=== PATIENT | male | born 1960 | race Caucasian/White ===

== ENCOUNTER 2020-10-18 13:21 | Emergency (ER) | payer MEDICAID ==
[~2020-10-18] VITALS: Ht 149.9 cm; Wt 40.5 kg
[~2020-10-18 13:21] MED LIST: ASCO500T28 PO; BENZ0.5T27 PO; CRAN450T4 PO; FLUV100T3 PO; LACTC PO; POLY17PO10 PO; RISP1TAB13 PO; SENN-263 PO; SULF1TAB45 PO
[2020-10-18 14:24] VITALS: BP 133/77
[2020-10-18 14:34] LABS: BASOPHILS % (AUTO) 0.6 % (0-1); EOSINOPHILS # (AUTO) 0.3 X10'3 (0-0.9); EOSINOPHILS % (AUTO) 4.9 % (0-6); HEMOGLOBIN 14.3 g/dl (14.0-17.9); LYMPHOCYTES # (AUTO) 2.3 X10'3 (1.1-4.8); LYMPHOCYTES % (AUTO) 34.1 % (21-51); MEAN CORPUSCULAR HGB CONC 34.9 g/dL (33.0-36.5); MEAN PLATELET VOLUME 6.8 FL (7.4-10.4); MONOCYTES % (AUTO) 14.4 % (2-12); NEUTROPHILS # (AUTO) 3.2 X10'3 (1.8-7.7); PLATELET COUNT 173 X10'3 (140-440); RED CELL DISTRIBUTION WIDTH 12.7 % (11.5-14.5); WHITE BLOOD COUNT 6.9 X10'3 (4.5-11.0)
[2020-10-18 14:52] LABS: ALANINE AMINOTRANSFERASE 63 U/L (12-78); ALBUMIN 3.1 G/DL (3.4-5.0); ALBUMIN/GLOBULIN RATIO 0.8 (1.1-1.5); ALKALINE PHOSPHATASE 116 IU/L (46-116); ANION GAP 9 (8-16); ASPARTATE AMINO TRANSFERASE 37 U/L (10-37); BILIRUBIN,TOTAL 0.2 MG/DL (0.1-1.0); BLOOD UREA NITROGEN 20 MG/DL (7-18); BUN/CREATININE RATIO 21.5 (5.4-32.0); C-REACTIVE PROTEIN 0.54 MG/DL (0.0-0.5); CALCIUM 8.6 MG/DL (8.5-10.1); CHLORIDE 103 MMOL/L (99-107); CREATININE 0.93 MG/DL (0.60-1.10); GLUCOSE 117 MG/DL (70-104); POTASSIUM 3.8 MMOL/L (3.5-5.1); SODIUM 142 MMOL/L (135-145); TOTAL CARBON DIOXIDE 30.5 MMOL/L (24-32); TOTAL PROTEIN 6.9 G/DL (6.4-8.2); eGFR 82 ML/MIN
[2020-10-18] MEDS ORDERED: iohexol 350MG/ML 100ml bottle IV ONE (15:32)
[2020-10-18] MEDS ORDERED: KEF125L PO (19:54)
[2020-10-18] MEDS ORDERED: cephalexin 250mg capsule PO ONE (20:05)
== END 2020-10-18 20:59 | disposition home or self-care (01) ==
LOC: EDBD → MERGE 13:21 → ER 13:21 → EDBD 13:21 → ER 20:59
DX: I96 Gangrene, not elsewhere classified (principal); R62.50 Unspecified lack of expected normal physiological development in childhood; B18.1 Chronic viral hepatitis B without delta-agent; Z88.0 Allergy status to penicillin; Z79.2 Long term (current) use of antibiotics; Z79.899 Other long term (current) drug therapy; Z86.19 Personal history of other infectious and parasitic diseases; Z87.440 Personal history of urinary (tract) infections
CPT/HCPCS: 29130; 36415; 73130; 73140; 73206; 80053; 83605; 84145; 85025; 85651; 86140; 87040; 99285; Q9967

== ENCOUNTER 2020-10-20 23:00 | Emergency (ER) | payer MEDICAID ==
[~2020-10-20] VITALS: Ht 137.2 cm; Wt 48.0 kg
[~2020-10-20 23:00] MED LIST changes: +KEF125L PO
[2020-10-20 23:05] VITALS: BP 121/77
[2020-10-20] MEDS ORDERED: normal saline 1000ML IV soln IV ONE (23:10)
[2020-10-21 00:07] LABS: BASOPHILS % (AUTO) 0.1 % (0-1); EOSINOPHILS # (AUTO) 0.1 X10'3 (0-0.9); EOSINOPHILS % (AUTO) 0.9 % (0-6); HEMATOCRIT 39.3 % (42.0-52.0); HEMOGLOBIN 13.6 g/dl (14.0-17.9); LYMPHOCYTES # (AUTO) 0.5 X10'3 (1.1-4.8); LYMPHOCYTES % (AUTO) 5.8 % (21-51); MEAN CORPUSCULAR HEMOGLOBIN 31.1 PG (27.0-31.0); MEAN CORPUSCULAR HGB CONC 34.7 g/dL (33.0-36.5); MEAN CORPUSCULAR VOLUME 89.6 FL (78-98); MEAN PLATELET VOLUME 6.8 FL (7.4-10.4); MONOCYTES # (AUTO) 0.5 X10'3 (0-0.9); MONOCYTES % (AUTO) 5.6 % (2-12); NEUTROPHILS % (AUTO) 87.6 % (42-75); PLATELET COUNT 149 X10'3 (140-440); RED BLOOD COUNT 4.39 X10'6 (4.70-6.10); RED CELL DISTRIBUTION WIDTH 12.8 % (11.5-14.5); WHITE BLOOD COUNT 9.2 X10'3 (4.5-11.0)
[2020-10-21 00:37] LABS: ALANINE AMINOTRANSFERASE 57 U/L (12-78); ALBUMIN 2.7 G/DL (3.4-5.0); ALBUMIN/GLOBULIN RATIO 0.7 (1.1-1.5); ALKALINE PHOSPHATASE 94 IU/L (46-116); ASPARTATE AMINO TRANSFERASE 32 U/L (10-37); BILIRUBIN,TOTAL 0.4 MG/DL (0.1-1.0); BLOOD UREA NITROGEN 24 MG/DL (7-18); BUN/CREATININE RATIO 27.9 (5.4-32.0); CALCIUM 8.2 MG/DL (8.5-10.1); CREATININE 0.86 MG/DL (0.60-1.10); GLUCOSE 105 MG/DL (70-104); MAGNESIUM 1.9 MG/DL (1.5-2.4); TOTAL CARBON DIOXIDE 29.1 MMOL/L (24-32); TOTAL PROTEIN 6.4 G/DL (6.4-8.2); eGFR 90 ML/MIN
[2020-10-21 00:43] LABS: ANION GAP 9 (8-16); CHLORIDE 109 MMOL/L (99-107); POTASSIUM 3.5 MMOL/L (3.5-5.1); SODIUM 147 MMOL/L (135-145)
[2020-10-21] MEDS ORDERED: SULF1TAB49 PO (01:23)
[2020-10-21] MEDS ORDERED: acetaminophen 325mg tablet PO ONE (01:35)
== END 2020-10-21 02:01 | disposition home or self-care (01) ==
LOC: ER 23:01
DX: I96 Gangrene, not elsewhere classified (principal); R62.50 Unspecified lack of expected normal physiological development in childhood; R53.83 Other fatigue; Z86.19 Personal history of other infectious and parasitic diseases; Z88.0 Allergy status to penicillin
CPT/HCPCS: 36415; 71045; 80053; 83605; 83735; 84145; 85025; 87040; 93005; 96360; 96361; 99285; J7030

== ENCOUNTER 2020-10-27 08:04 | Emergency (ER) | payer MEDICAID ==
[~2020-10-27] VITALS: Ht 144.8 cm; Wt 42.9 kg
[~2020-10-27 08:04] MED LIST changes: -KEF125L PO; +SULF1TAB49 PO
[2020-10-27] MEDS ORDERED: cocaine 4% topical solution 4ml bottle MM ONE (08:15)
--- NOTE | 2020-10-27 08:29 | NUR ---
CALLED PHARMACY FOR PHENYEPRINE NASAL SPRAY PER PHARMACY THEY WILL BRING IN FEW MINS.
[2020-10-27] MEDS ORDERED: phenylephrine 0.5% nose drops 15ml NS PRN (08:40)
--- NOTE | 2020-10-27 09:08 | NUR ---
MEDS ADMIN BY THE DR SAVAGE.
[2020-10-27 09:25] VITALS: BP 137/77
--- NOTE | 2020-10-27 09:32 | NUR ---
notified the primary care coordinator the pt is getting d/c.
== END 2020-10-27 10:00 | disposition home or self-care (01) ==
LOC: ER 08:05
DX: R04.0 Epistaxis (principal); I96 Gangrene, not elsewhere classified; F20.9 Schizophrenia, unspecified; Z86.19 Personal history of other infectious and parasitic diseases; Z88.0 Allergy status to penicillin; Z79.2 Long term (current) use of antibiotics; Z79.899 Other long term (current) drug therapy
CPT/HCPCS: 99284

== ENCOUNTER 2020-10-30 13:10 | Emergency (ER) | payer MEDICAID ==
[~2020-10-30] VITALS: Ht 165.1 cm; Wt 43.2 kg
[~2020-10-30 13:10] MED LIST changes: -SULF1TAB49 PO
[2020-10-30 13:14] VITALS: BP 109/79
== END 2020-10-30 18:15 | disposition home or self-care (01) ==
LOC: ER 13:11
DX: S00.83XD Contusion of other part of head, subsequent encounter (principal); F20.9 Schizophrenia, unspecified; Z86.19 Personal history of other infectious and parasitic diseases; Z88.0 Allergy status to penicillin; Z79.2 Long term (current) use of antibiotics; Z79.899 Other long term (current) drug therapy; W19.XXXD Unspecified fall, subsequent encounter
CPT/HCPCS: 70150; 99283

== ENCOUNTER 2020-12-21 07:56 | Day surgery (SDC) | payer MEDICAID ==
[~2020-12-21] VITALS: Ht 157.5 cm; Wt 40.4 kg
[2020-12-21] VITALS (12 sets, daily range): BP systolic 77–117; BP diastolic 43–75
[~2020-12-21 07:56] MED LIST changes: +BUPIVAcaine/PF 2.5mg/ml (0.25%) 10ml vial ONE; +clindamycin-Cleocin 900mg/D5W 50 ML IV ONE; +famotidine 20mg tablet PO ONE; +ringers solution, lacted 1,000 ML IV SCH
[2020-12-21] MEDS ORDERED: MIDAZOLAM HCL 10 MG/5 ML UD cup PO ONE (08:50)
[2020-12-21] MEDS ORDERED: sevoflurane 250ml liquid IH ONE (10:18)
[2020-12-21] MEDS ORDERED: propofol inj 20 ML IV ONE (10:20)
[2020-12-21] MEDS ORDERED: ePHEDrine 50MG/ML INJ. ONE (10:34)
--- NOTE | 2020-12-21 11:14 | NUR ---
ASSUME CARE VSS NO DISTRESS LMA IN PLACE RESPONDS TO TACTILE STIMULI. DRESSING TO LEFT HAND CDI +CMS TO LEFT HAND AND FINGERS. CONT TO MONITOR Addendum: 12/21/20 at 1129 by Christiana Andre RN Amended: Links added.
[2020-12-21] MEDS ORDERED: meperidine/PF 25mg/ml syringe IV PRN ×3 (11:20)
[2020-12-21] MEDS ORDERED: ringers solution, lacted 1,000 ML IV SCH (11:20)
[2020-12-21] MEDS ORDERED: proCHLORperazine 10 MG/2 ml inj IV PRN (11:20)
[2020-12-21] MEDS ORDERED: ondansetron/PF 4mg/2ml inj IV PRN (11:20)
[2020-12-21] MEDS ORDERED: morphine 2 MG/ML inj. syringe IV PRN (11:20)
[2020-12-21] MEDS ORDERED: morphine 4 MG/ML inj SYRINge IV PRN (11:20)
--- NOTE | 2020-12-21 11:38 | NUR ---
PT MORE AWAKE LMA PULLED TO OTHER DISTRESS VSS Addendum: 12/21/20 at 1138 by Christiana Andre RN Amended: Links added.
--- NOTE | 2020-12-21 13:00 | NUR ---
PT MORE AWAKE VSS NO DISTRESS NO PAIN, DC INSTR GIVEN TO CAREGIVER NO ?'S PT MEETS CRITERIA TO GO HOME. RIDE CALLED. Addendum: 12/21/20 at 1338 by Christiana Andre RN Amended: Links added.
== END 2020-12-21 13:14 | disposition home or self-care (01) ==
LOC: PAS 07:56
PROVIDERS: ATTEND Orthopaedic Surgery Hand Surgery
DX: I96 Gangrene, not elsewhere classified (principal); F42.9 Obsessive-compulsive disorder, unspecified; F20.9 Schizophrenia, unspecified; B18.1 Chronic viral hepatitis B without delta-agent; Z88.0 Allergy status to penicillin; Z79.899 Other long term (current) drug therapy
CPT/HCPCS: 26951; A6222; J2704; J3490; J7120; Z7506; Z7512; A4618; A6449; A7000

== ENCOUNTER 2020-12-31 09:33 | Emergency (ER) | payer MEDICAID ==
[~2020-12-31] VITALS: Ht 144.8 cm; Wt 45.0 kg
[~2020-12-31 09:33] MED LIST changes: -BUPIVAcaine/PF 2.5mg/ml (0.25%) 10ml vial ONE; -clindamycin-Cleocin 900mg/D5W 50 ML IV ONE; -famotidine 20mg tablet PO ONE; -ringers solution, lacted 1,000 ML IV SCH
== END 2020-12-31 16:59 | disposition left against medical advice (07) ==
LOC: ER 09:34
DX: H57.12 Ocular pain, left eye (principal); Z53.21 Procedure and treatment not carried out due to patient leaving prior to being seen by health care provider

== ENCOUNTER 2021-02-07 18:53 | Emergency (ER) | payer MEDICAID ==
[~2021-02-07] VITALS: Ht 144.8 cm; Wt 38.6 kg
[~2021-02-07 18:53] MED LIST changes: -BENZ0.5T27 PO; +BENZ0.5T36 PO; +FLUV100T21 PO; -FLUV100T3 PO
[2021-02-07 19:04] VITALS: BP 150/78
[2021-02-07 19:47] LABS: BASOPHILS % (AUTO) 0.2 % (0-1); EOSINOPHILS % (AUTO) 0.1 % (0-6); HEMATOCRIT 37.2 % (42.0-52.0); HEMOGLOBIN 13.1 g/dl (14.0-17.9); LYMPHOCYTES # (AUTO) 1.5 X10'3 (1.1-4.8); LYMPHOCYTES % (AUTO) 20.9 % (21-51); MEAN CORPUSCULAR HEMOGLOBIN 31.8 PG (27.0-31.0); MEAN CORPUSCULAR HGB CONC 35.2 g/dL (33.0-36.5); MEAN CORPUSCULAR VOLUME 90.2 FL (78-98); MEAN PLATELET VOLUME 6.7 FL (7.4-10.4); MONOCYTES # (AUTO) 0.8 X10'3 (0-0.9); MONOCYTES % (AUTO) 10.8 % (2-12); NEUTROPHILS # (AUTO) 4.8 X10'3 (1.8-7.7); PLATELET COUNT 205 X10'3 (140-440); RED BLOOD COUNT 4.13 X10'6 (4.70-6.10); RED CELL DISTRIBUTION WIDTH 12.4 % (11.5-14.5); WHITE BLOOD COUNT 7.1 X10'3 (4.5-11.0)
[2021-02-07 20:05] LABS: ALANINE AMINOTRANSFERASE 51 U/L (12-78); ALBUMIN 2.7 G/DL (3.4-5.0); ALBUMIN/GLOBULIN RATIO 0.6 (1.1-1.5); ALKALINE PHOSPHATASE 100 IU/L (46-116); ANION GAP 6 (8-16); ASPARTATE AMINO TRANSFERASE 25 U/L (10-37); BILIRUBIN,TOTAL 0.2 MG/DL (0.1-1.0); BLOOD UREA NITROGEN 23 MG/DL (7-18); BUN/CREATININE RATIO 23.7 (5.4-32.0); CALCIUM 8.8 MG/DL (8.5-10.1); CHLORIDE 108 MMOL/L (99-107); CREATININE 0.97 MG/DL (0.60-1.10); GLUCOSE 221 MG/DL (70-104); POTASSIUM 4.1 MMOL/L (3.5-5.1); SODIUM 146 MMOL/L (135-145); TOTAL CARBON DIOXIDE 31.8 MMOL/L (24-32); TOTAL PROTEIN 7.2 G/DL (6.4-8.2); eGFR 78 ML/MIN
[2021-02-07] MEDS ORDERED: ALBU8HFA PO (20:09)
[2021-02-07] MEDS ORDERED: AZIT-103 PO (20:09)
[2021-02-07] MEDS ORDERED: azithromycin 250mg tablet PO ONE (20:20)
== END 2021-02-07 20:34 | disposition home or self-care (01) ==
LOC: ER 18:54
DX: J20.9 Acute bronchitis, unspecified (principal); F20.9 Schizophrenia, unspecified; Z88.0 Allergy status to penicillin; Z79.899 Other long term (current) drug therapy; Z20.822 Contact with and (suspected) exposure to COVID-19
CPT/HCPCS: 36415; 71045; 80053; 85025; 87635; 99284; C9803

== ENCOUNTER 2021-07-21 20:05 | Emergency (ER) | payer MEDICAID ==
[~2021-07-21] VITALS: Ht 144.8 cm; Wt 38.6 kg
[2021-07-21] MEDS ORDERED: LORazepam 2 mg/ml vial IM ONE (20:35)
[2021-07-21] MEDS ORDERED: bacitracin 15gm ointment TP ONE (20:35)
== END 2021-07-21 21:25 | disposition home or self-care (01) ==
LOC: ER 20:06
DX: S01.312A Laceration without foreign body of left ear, initial encounter (principal); R62.50 Unspecified lack of expected normal physiological development in childhood; S01.01XA Laceration without foreign body of scalp, initial encounter; Z86.19 Personal history of other infectious and parasitic diseases; Z88.0 Allergy status to penicillin; Z79.899 Other long term (current) drug therapy; W19.XXXA Unspecified fall, initial encounter; Z91.81 History of falling; Y93.89 Activity, other specified; Y92.89 Other specified places as the place of occurrence of the external cause; Y99.8 Other external cause status
CPT/HCPCS: 96372; 99284; J2060

== ENCOUNTER 2021-09-21 12:07 | Inpatient (IN) | payer MEDICAID ==
[~2021-09-21] VITALS: Ht 152.4 cm; Wt 31.8 kg
[2021-09-21 16:47] LABS: BASOPHILS % (AUTO) 0.3 % (0-1); EOSINOPHILS # (AUTO) 0.1 X10'3 (0-0.9); HEMATOCRIT 47.3 % (42.0-52.0); HEMOGLOBIN 15.6 g/dl (14.0-17.9); LYMPHOCYTES # (AUTO) 3.6 X10'3 (1.1-4.8); LYMPHOCYTES % (AUTO) 36.3 % (21-51); MEAN CORPUSCULAR HEMOGLOBIN 31.1 PG (27.0-31.0); MEAN CORPUSCULAR VOLUME 94.2 FL (78-98); MEAN PLATELET VOLUME 8.1 FL (7.4-10.4); MONOCYTES # (AUTO) 0.9 X10'3 (0-0.9); NEUTROPHILS # (AUTO) 5.2 X10'3 (1.8-7.7); NEUTROPHILS % (AUTO) 53.4 % (42-75); PLATELET COUNT 239 X10'3 (140-440); RED BLOOD COUNT 5.03 X10'6 (4.70-6.10); RED CELL DISTRIBUTION WIDTH 13.3 % (11.5-14.5); WHITE BLOOD COUNT 9.8 X10'3 (4.5-11.0)
[2021-09-21 17:02] LABS: ALANINE AMINOTRANSFERASE 49 U/L (12-78); ALBUMIN/GLOBULIN RATIO 0.6 (1.1-1.5); ALKALINE PHOSPHATASE 99 IU/L (46-116); ANION GAP 15 (8-16); ASPARTATE AMINO TRANSFERASE 27 U/L (10-37); BILIRUBIN,TOTAL 0.6 MG/DL (0.1-1.0); BLOOD UREA NITROGEN 51 MG/DL (7-18); BUN/CREATININE RATIO 46.4 (5.4-32.0); CALCIUM 9.7 MG/DL (8.5-10.1); CHLORIDE 121 MMOL/L (99-107); GLUCOSE 75 MG/DL (70-104); LIPASE 93 U/L (73-393); eGFR 68 ML/MIN
[2021-09-21 17:09] LABS: SODIUM 169 MMOL/L (135-145)
[2021-09-21] MEDS ORDERED: sodium chloride 0.45% 1,000 ML IV ONE (21:05)
[2021-09-21] MEDS ORDERED: HYDROcodone/acetaminophen 10/325mg tab PO PRN (22:25)
[2021-09-21] MEDS ORDERED: diphenhydrAMINE 50 mg/ml inj IV PRN (22:25)
[2021-09-21] MEDS ORDERED: acetaminophen 650mg rectal suppository RC PRN (22:25)
[2021-09-21] MEDS ORDERED: diphenhydrAMINE 25mg capsule PO PRN (22:25)
[2021-09-21] MEDS ORDERED: acetaminophen 325mg tablet PO PRN ×2 (22:25)
[2021-09-21] MEDS ORDERED: ondansetron 4mg rapidly disintigrating tab PO PRN (22:25)
[2021-09-21] MEDS ORDERED: magnesium hydroxide 30ml (MOM) UD suspension PO PRN (22:25)
[2021-09-21] MEDS ORDERED: mag hydrox/Alum hydrox/simeth 30ml oral suspension PO PRN (22:25)
[2021-09-21] MEDS ORDERED: HYDROcodone/acetaminophen 5mg/325mg tablet PO PRN (22:25)
[2021-09-21] MEDS ORDERED: ondansetron/PF 4mg/2ml inj IV PRN (22:25)
[2021-09-21] MEDS ORDERED: bisacodyl 10mg suppository rectal RC PRN (22:25)
[2021-09-21] MEDS ORDERED: morphine 2 MG/ML inj. syringe IV PRN ×2 (22:25)
[2021-09-21] MEDS ORDERED: diazepam inj 5 MG/ML inj. IV PRN (22:35)
[2021-09-21] MEDS: dextrose 5%-water 1,000 ML IV SCH (22:35)
[2021-09-21] MEDS ORDERED: niCARdipine I.V. 50 MG in normal saline 250ml IV soln 230 ML IV SCH (22:35)
[2021-09-21 22:49] LABS: HEMOGLOBIN A1C 5.8 % (4.5-6.2)
[2021-09-21 23:03] LABS: PHOSPHORUS 4.3 MG/DL (2.3-4.5)
[2021-09-21 23:11] LABS: APTT 28 SECONDS (22-32)
[2021-09-21 23:24] LABS: CREATINE KINASE 113 U/L (39-308)
[2021-09-21] MEDS: niCARDipine-NS 40mg/200ml IVPB 200 ML IV SCH (23:38)
[2021-09-22 01:04] LABS: BASOPHILS % (AUTO) 0.2 % (0-1); EOSINOPHILS % (AUTO) 0 % (0-6); HEMATOCRIT 45.1 % (42.0-52.0); HEMOGLOBIN 14.9 g/dl (14.0-17.9); LYMPHOCYTES # (AUTO) 1.7 X10'3 (1.1-4.8); LYMPHOCYTES % (AUTO) 12.5 % (21-51); MEAN CORPUSCULAR HEMOGLOBIN 30.7 PG (27.0-31.0); MEAN CORPUSCULAR HGB CONC 33.1 g/dL (33.0-36.5); MEAN CORPUSCULAR VOLUME 92.9 FL (78-98); MEAN PLATELET VOLUME 8.1 FL (7.4-10.4); NEUTROPHILS # (AUTO) 10.9 X10'3 (1.8-7.7); NEUTROPHILS % (AUTO) 80.3 % (42-75); PLATELET COUNT 182 X10'3 (140-440); RED BLOOD COUNT 4.86 X10'6 (4.70-6.10); RED CELL DISTRIBUTION WIDTH 13.3 % (11.5-14.5); WHITE BLOOD COUNT 13.6 X10'3 (4.5-11.0)
[2021-09-22 01:21] LABS: ALANINE AMINOTRANSFERASE 41 U/L (12-78); ALBUMIN 2.7 G/DL (3.4-5.0); ALBUMIN/GLOBULIN RATIO 0.6 (1.1-1.5); ALKALINE PHOSPHATASE 88 IU/L (46-116); ANION GAP 16 (8-16); ASPARTATE AMINO TRANSFERASE 22 U/L (10-37); BILIRUBIN,TOTAL 0.7 MG/DL (0.1-1.0); BLOOD UREA NITROGEN 58 MG/DL (7-18); BUN/CREATININE RATIO 48.3 (5.4-32.0); CALCIUM 9.4 MG/DL (8.5-10.1); CHLORIDE 123 MMOL/L (99-107); CHOL/HDL RATIO 3.3 (0.00-4.99); CHOLESTEROL 258 MG/DL (0-200); GLUCOSE 80 MG/DL (70-104); HDL CHOLESTEROL 78 MG/DL (35-60); LDL CHOLESTEROL 142 MG/DL (50-100); POTASSIUM 4.1 MMOL/L (3.5-5.1); TOTAL PROTEIN 7.1 G/DL (6.4-8.2); TRIGLYCERIDES 113 MG/DL (20-135); eGFR 61 ML/MIN
[2021-09-22 01:23] LABS: SODIUM 168 MMOL/L (135-145)
[2021-09-22] MEDS ORDERED: NAPR-1115 PO (04:47)
[2021-09-22] MEDS ORDERED: FLUV100C2 PO (04:47)
[2021-09-22] MEDS ORDERED: LORA10TA7 PO (04:47)
[2021-09-22] MEDS ORDERED: RISP1TAB98 PO (04:47)
[2021-09-22] MEDS ORDERED: SENN-263 PO (04:47)
[2021-09-22] MEDS ORDERED: ACET-1015 PO (04:47)
[2021-09-22] MEDS ORDERED: LATA2.5D14 LEFTEYE (04:47)
[2021-09-22] MEDS ORDERED: BENZ0.5T4 PO (04:47)
[2021-09-22] MEDS ORDERED: FLUV50TA24 PO (04:47)
[2021-09-22] MEDS ORDERED: ALBU8HFA IH (04:53)
[2021-09-22] MEDS: niCARDipine-NS 40mg/200ml IVPB 200 ML IV SCH ×3 (05:15→22:02)
[2021-09-22] MEDS ORDERED: pantoprazole 40MG/NS 100ML BAG 100 ML IV SCH (08:00)
[2021-09-22] MEDS: docusate sod 100mg capsule PO SCH ×2 (08:00→20:00)
[2021-09-22] MEDS: levoFLOXACIN 750MG TABLET PO SCH (08:51)
[2021-09-22] MEDS: heparin, porcine 5000 units/ml vial SQ SCH ×2 (08:51→22:01)
[2021-09-22] MEDS: dextrose 5%-water 1,000 ML IV SCH ×2 (10:10→16:17)
--- NOTE | 2021-09-22 10:16 | NUR ---
Call to CT scan to inform them patient ready for CT scan.
--- NOTE | 2021-09-22 12:28 | NUR ---
pt monitoring engineer was showing hr of 200's while pt was anxious and taping his chest with his hands.order the stat ekg for monitor changes .
--- NOTE | 2021-09-22 12:32 | NUR ---
dr jordan seen the ekg and said its okay .
--- NOTE | 2021-09-22 12:45 | NUR ---
delfino cruz feeding lunch to the patient .
--- NOTE | 2021-09-22 13:09 | NUR ---
Patient ate 80% of his puree lunch and drank half of his ice tea.
[2021-09-22 15:59] VITALS: BP 82/56
[2021-09-22] MEDS ORDERED: albuterol 2.5 MG/3 ML nebule NEB PRN (17:15)
--- NOTE | 2021-09-22 17:39 | NUR ---
PAGE SENT PAGER ID: [phone] MESSAGE: [id number], JOSÉ MANUEL SIBLEY, PT COULD BENEFIT FROM A SITTER PT TRIES TO GET OUT OF BED AND HE HAS ALSO BEEN FOUND WITH IV LINES AROUND HIS NECK. THANK YOU, CIRO [id number]
[2021-09-22 18:00] VITALS: BP 86/58
--- NOTE | 2021-09-22 18:39 | NUR ---
Problems reprioritized. Patient report given, questions answered & plan of care reviewed with ABHILASH ASH.
--- NOTE | 2021-09-22 18:40 | NUR ---
Patient in room PCU 3028. I have received report from CIRO HUNG and had the opportunity to ask questions and assume patient care.
[2021-09-22] MEDS: FLUVOXAMINE MALEATE 100 MG PO SCH (21:00)
[2021-09-22 22:00] VITALS: BP 98/55
[2021-09-22] MEDS: risperiDONE 0.5mg tablet PO SCH (22:00)
[2021-09-22] MEDS: latanoprost 0.005% 2.5ml ophthalmic drops LEFTEYE SCH (22:00)
[2021-09-23 02:00] VITALS: BP 114/72
[2021-09-23] MEDS: dextrose 5%-water 1,000 ML IV SCH ×2 (04:52→17:11)
[2021-09-23 05:49] LABS: BASOPHILS % (AUTO) 0.2 % (0-1); EOSINOPHILS # (AUTO) 0.1 X10'3 (0-0.9); EOSINOPHILS % (AUTO) 0.8 % (0-6); HEMATOCRIT 40.2 % (42.0-52.0); HEMOGLOBIN 13.2 g/dl (14.0-17.9); LYMPHOCYTES # (AUTO) 1.1 X10'3 (1.1-4.8); MEAN CORPUSCULAR HEMOGLOBIN 30.6 PG (27.0-31.0); MEAN CORPUSCULAR HGB CONC 32.9 g/dL (33.0-36.5); MEAN CORPUSCULAR VOLUME 92.9 FL (78-98); MEAN PLATELET VOLUME 8.5 FL (7.4-10.4); MONOCYTES # (AUTO) 0.6 X10'3 (0-0.9); MONOCYTES % (AUTO) 7.8 % (2-12); NEUTROPHILS # (AUTO) 5.7 X10'3 (1.8-7.7); NEUTROPHILS % (AUTO) 76.2 % (42-75); PLATELET COUNT 121 X10'3 (140-440); RED BLOOD COUNT 4.33 X10'6 (4.70-6.10); RED CELL DISTRIBUTION WIDTH 13.1 % (11.5-14.5); WHITE BLOOD COUNT 7.4 X10'3 (4.5-11.0)
[2021-09-23 06:00] VITALS: BP 105/59
[2021-09-23 06:06] LABS: ALANINE AMINOTRANSFERASE 27 U/L (12-78); ALBUMIN 2.2 G/DL (3.4-5.0); ALBUMIN/GLOBULIN RATIO 0.6 (1.1-1.5); ALKALINE PHOSPHATASE 76 IU/L (46-116); ANION GAP 7 (8-16); ASPARTATE AMINO TRANSFERASE 23 U/L (10-37); BILIRUBIN,TOTAL 0.6 MG/DL (0.1-1.0); BLOOD UREA NITROGEN 32 MG/DL (7-18); BUN/CREATININE RATIO 31.7 (5.4-32.0); CALCIUM 8.5 MG/DL (8.5-10.1); CHLORIDE 117 MMOL/L (99-107); CREATININE 1.01 MG/DL (0.60-1.10); GLUCOSE 127 MG/DL (70-104); POTASSIUM 3.1 MMOL/L (3.5-5.1); TOTAL CARBON DIOXIDE 30.9 MMOL/L (24-32); TOTAL PROTEIN 6.1 G/DL (6.4-8.2); eGFR 75 ML/MIN
[2021-09-23 06:23] LABS: SODIUM 155 MMOL/L (135-145)
--- NOTE | 2021-09-23 06:28 | NUR ---
Problems reprioritized. Patient report given, questions answered & plan of care reviewed with JAIMIE HUNG.
--- NOTE | 2021-09-23 06:30 | NUR ---
Received pt report from Tanisha HUNG. Pt resting comfortably with sitter at bedside.
[2021-09-23] MEDS: docusate sod 100mg capsule PO SCH ×2 (08:00→20:27)
[2021-09-23] MEDS: heparin, porcine 5000 units/ml vial SQ SCH ×2 (08:40→20:27)
[2021-09-23] MEDS: loratadine 10mg tablet PO SCH (08:40)
[2021-09-23] MEDS: fluvoxamine 25 MG tablet PO SCH ×2 (08:40→20:26)
[2021-09-23] MEDS: lactobacillus rhamnosus 10,000 MMU CELLS/CAPSULE PO SCH (08:40)
[2021-09-23] MEDS: benztropine 1mg tablet PO SCH (08:40)
[2021-09-23] MEDS: pantoprazole 40mg Tablet.DR PO SCH (08:42)
[2021-09-23] MEDS ORDERED: magnesium 4gm in 100ml NS 100 ML IV PRN (09:30)
[2021-09-23] MEDS ORDERED: magnesium Cl slow-release 64mg tablet PO PRN (09:30)
[2021-09-23] MEDS ORDERED: magnesium 2GM in 50ml NS 50 ML IV PRN (09:30)
[2021-09-23] MEDS ORDERED: POTASSIUM BICARB 20meq eff tab 20 MEQ TABLET.EFF PO PRN ×2 (09:30)
--- NOTE | 2021-09-23 10:10 | NUR ---
Noted pt with a low BMI of 13.7 using wt of 31.82 kg which isn't scaled and ht of 60" which is not consistent with ht hx in EMR. Pt most frequently documented as 57" at past admits and scaled wt hx ranges from 37.27-45 kg back to 2020. Pt appears to be chronically underweight. Pt s/p BSS with ST recs pureed food with thin liquids, currently eating well, documented with 75% PO intake first meal meeting estimated nutrient needs. Pt with hypernatremia, receiving D5 at 100 mL/hr which provides 408 kcal/day. Pt with no edema and skin is intact per EMR. No nutrition intervention implemented at this time. Will continue to follow closely. Recommendations: 1) Continue pureed diet with thin liquids per ST recs 2) Total assistance with meals 3) Routine bowel care 4) Scaled weight this admit; subsequent weekly scaled weights Addendum: 09/23/21 at [address] Amended: Links added.
[2021-09-23 10:14] LABS: MAGNESIUM 2.1 MG/DL (1.5-2.4)
[2021-09-23 11:00] VITALS: BP 88/51
--- NOTE | 2021-09-23 14:39 | NUR ---
Paged hospitalist regarding patient being febrile with fever 101. Awaiting response.
[2021-09-23 14:55] VITALS: BP 93/59
--- NOTE | 2021-09-23 14:55 | NUR ---
Hospitalist returned call, informed of fever of 101. Patient is receiving antibiotics, will continue to monitor closely.
[2021-09-23 18:00] VITALS: BP 111/56
[2021-09-23] MEDS: K and/or MAG REPLACEMENT MC SCH (20:00)
[2021-09-23] MEDS: latanoprost 0.005% 2.5ml ophthalmic drops LEFTEYE SCH (20:27)
[2021-09-23] MEDS: risperiDONE 0.5mg tablet PO SCH (20:27)
[2021-09-23] MEDS: FLUVOXAMINE MALEATE 100 MG PO SCH (20:28)
[2021-09-23 22:00] VITALS: BP 82/52
[2021-09-24 02:00] VITALS: BP 98/58
[2021-09-24 06:00] VITALS: BP 109/65
[2021-09-24 06:24] LABS: BASOPHILS % (AUTO) 0.2 % (0-1); EOSINOPHILS # (AUTO) 0.1 X10'3 (0-0.9); EOSINOPHILS % (AUTO) 1.1 % (0-6); HEMATOCRIT 37.6 % (42.0-52.0); HEMOGLOBIN 12.3 g/dl (14.0-17.9); LYMPHOCYTES # (AUTO) 2.1 X10'3 (1.1-4.8); LYMPHOCYTES % (AUTO) 23.7 % (21-51); MEAN CORPUSCULAR HEMOGLOBIN 30.5 PG (27.0-31.0); MEAN CORPUSCULAR HGB CONC 32.7 g/dL (33.0-36.5); MEAN CORPUSCULAR VOLUME 93.2 FL (78-98); MEAN PLATELET VOLUME 9.8 FL (7.4-10.4); MONOCYTES # (AUTO) 0.7 X10'3 (0-0.9); NEUTROPHILS # (AUTO) 5.9 X10'3 (1.8-7.7); PLATELET COUNT 104 X10'3 (140-440); RED BLOOD COUNT 4.03 X10'6 (4.70-6.10); RED CELL DISTRIBUTION WIDTH 13.1 % (11.5-14.5); WHITE BLOOD COUNT 8.8 X10'3 (4.5-11.0)
--- NOTE | 2021-09-24 06:30 | NUR ---
Patient in room PCU 3028. I have received report from saurabh and had the opportunity to ask questions and assume patient care.
--- NOTE | 2021-09-24 06:30 | NUR ---
Patient in room PCU 3028. I have received report from ABHILASH Steele and had the opportunity to ask questions and assume patient care.
[2021-09-24 06:53] LABS: ALANINE AMINOTRANSFERASE 27 U/L (12-78); ALBUMIN/GLOBULIN RATIO 0.5 (1.1-1.5); ALKALINE PHOSPHATASE 70 IU/L (46-116); ANION GAP 9 (8-16); ASPARTATE AMINO TRANSFERASE 29 U/L (10-37); BILIRUBIN,TOTAL 0.5 MG/DL (0.1-1.0); BLOOD UREA NITROGEN 16 MG/DL (7-18); BUN/CREATININE RATIO 20.5 (5.4-32.0); CALCIUM 8.3 MG/DL (8.5-10.1); CHLORIDE 110 MMOL/L (99-107); CREATININE 0.78 MG/DL (0.60-1.10); GLUCOSE 87 MG/DL (70-104); MAGNESIUM 2.2 MG/DL (1.5-2.4); POTASSIUM 3.3 MMOL/L (3.5-5.1); SODIUM 149 MMOL/L (135-145); TOTAL CARBON DIOXIDE 30.3 MMOL/L (24-32); TOTAL PROTEIN 5.9 G/DL (6.4-8.2); eGFR > 90 ML/MIN
[2021-09-24] MEDS: K and/or MAG REPLACEMENT MC SCH ×2 (08:00→20:00)
[2021-09-24] MEDS: levoFLOXACIN 750MG TABLET PO SCH (09:00)
[2021-09-24] MEDS: benztropine 1mg tablet PO SCH (09:00)
[2021-09-24] MEDS: docusate sod 100mg capsule PO SCH ×2 (09:01→20:00)
[2021-09-24] MEDS: atorvastatin 20mg tablet PO SCH (09:01)
[2021-09-24] MEDS: lactobacillus rhamnosus 10,000 MMU CELLS/CAPSULE PO SCH (09:01)
[2021-09-24] MEDS: loratadine 10mg tablet PO SCH (09:01)
[2021-09-24] MEDS: pantoprazole 40mg Tablet.DR PO SCH (09:01)
[2021-09-24] MEDS: sennosides 8.6mg tablet PO SCH (09:01)
[2021-09-24] MEDS: heparin, porcine 5000 units/ml vial SQ SCH ×2 (09:02→20:00)
[2021-09-24] MEDS: potassium CL 10mEq/100ml bag 100 ML IV PRN ×4 (09:34→14:16)
[2021-09-24 11:00] VITALS: BP 98/64
[2021-09-24] MEDS: dextrose 5%-water 1,000 ML IV SCH (14:16)
[2021-09-24 15:00] VITALS: BP 110/69
[2021-09-24 18:00] VITALS: BP 107/63
--- NOTE | 2021-09-24 18:11 | NUR ---
Problems reprioritized. Patient report given, questions answered & plan of care reviewed with JAMI Bruno.
[2021-09-24] MEDS: risperiDONE 0.5mg tablet PO SCH (20:36)
[2021-09-24] MEDS: fluvoxamine 25 MG tablet PO SCH (20:38)
[2021-09-24] MEDS: latanoprost 0.005% 2.5ml ophthalmic drops LEFTEYE SCH (21:00)
[2021-09-24 22:00] VITALS: BP 100/67
[2021-09-25] VITALS (7 sets, daily range): BP systolic 80–117; BP diastolic 49–66
[2021-09-25 00:24] LABS: CLARITY,URINE CLEAR (Clear); GLUCOSE, URINE NEGATIVE (Neg); KETONES,URINE NEGATIVE (Neg); LEUKOCYTE ESTERASE ,URINE NEGATIVE (Neg); NITRITES, URINE NEGATIVE (Neg); OCCULT BLOOD,URINE NEGATIVE (Neg); PROTEIN,URINE NEGATIVE (Neg); UROBILINOGEN,URINE 0.2 E.U/dL (0.2-1.0)
[2021-09-25 00:27] LABS: COLOR,URINE Straw (Yellow); UA COLLECTION TYPE CLN CATCH MIDSTREAM
--- NOTE | 2021-09-25 06:09 | NUR ---
Problems reprioritized. Patient report given, questions answered & plan of care reviewed with saurabh.
--- NOTE | 2021-09-25 06:15 | NUR ---
Patient in room PCU 3028. I have received report from JAMI Bruno and had the opportunity to ask questions and assume patient care.
[2021-09-25 06:26] LABS: ALANINE AMINOTRANSFERASE 26 U/L (12-78); ALBUMIN 1.8 G/DL (3.4-5.0); ALBUMIN/GLOBULIN RATIO 0.5 (1.1-1.5); ALKALINE PHOSPHATASE 64 IU/L (46-116); ANION GAP 9 (8-16); ASPARTATE AMINO TRANSFERASE 23 U/L (10-37); BILIRUBIN,TOTAL 0.5 MG/DL (0.1-1.0); BLOOD UREA NITROGEN 14 MG/DL (7-18); BUN/CREATININE RATIO 17.1 (5.4-32.0); CALCIUM 8.3 MG/DL (8.5-10.1); CHLORIDE 112 MMOL/L (99-107); CREATININE 0.82 MG/DL (0.60-1.10); GLUCOSE 80 MG/DL (70-104); MAGNESIUM 2.2 MG/DL (1.5-2.4); POTASSIUM 3.8 MMOL/L (3.5-5.1); SODIUM 149 MMOL/L (135-145); TOTAL CARBON DIOXIDE 28.5 MMOL/L (24-32); TOTAL PROTEIN 5.6 G/DL (6.4-8.2); eGFR > 90 ML/MIN
[2021-09-25 06:44] LABS: BASOPHILS % (AUTO) 0.2 % (0-1); EOSINOPHILS # (AUTO) 0.1 X10'3 (0-0.9); EOSINOPHILS % (AUTO) 1.5 % (0-6); HEMATOCRIT 35.8 % (42.0-52.0); HEMOGLOBIN 12.1 g/dl (14.0-17.9); LYMPHOCYTES # (AUTO) 1.8 X10'3 (1.1-4.8); LYMPHOCYTES % (AUTO) 27.8 % (21-51); MEAN CORPUSCULAR HEMOGLOBIN 30.8 PG (27.0-31.0); MEAN CORPUSCULAR HGB CONC 33.9 g/dL (33.0-36.5); MEAN CORPUSCULAR VOLUME 90.8 FL (78-98); MEAN PLATELET VOLUME 9.4 FL (7.4-10.4); MONOCYTES # (AUTO) 0.6 X10'3 (0-0.9); NEUTROPHILS % (AUTO) 61.5 % (42-75); PLATELET COUNT 102 X10'3 (140-440); RED BLOOD COUNT 3.94 X10'6 (4.70-6.10); RED CELL DISTRIBUTION WIDTH 12.6 % (11.5-14.5); WHITE BLOOD COUNT 6.5 X10'3 (4.5-11.0)
[2021-09-25] MEDS: K and/or MAG REPLACEMENT MC SCH ×2 (08:00→18:56)
[2021-09-25] MEDS: fluvoxamine 25 MG tablet PO SCH ×2 (09:01→21:00)
[2021-09-25] MEDS: lactobacillus rhamnosus 10,000 MMU CELLS/CAPSULE PO SCH (09:03)
[2021-09-25] MEDS: benztropine 1mg tablet PO SCH (09:03)
[2021-09-25] MEDS: docusate sod 100mg capsule PO SCH ×2 (09:04→20:00)
[2021-09-25] MEDS: atorvastatin 20mg tablet PO SCH (09:05)
[2021-09-25] MEDS: loratadine 10mg tablet PO SCH (09:06)
[2021-09-25] MEDS: pantoprazole 40mg Tablet.DR PO SCH (09:07)
[2021-09-25] MEDS: heparin, porcine 5000 units/ml vial SQ SCH ×2 (09:10→20:00)
--- NOTE | 2021-09-25 15:30 | NUR ---
Pt found on floor, next to bed, in room. VS taken and stable, bruising noted to bilateral knees. Dr Sow and tank charger notified.
--- NOTE | 2021-09-25 18:30 | NUR ---
Patient in room PCU 3028. I have received report from saurabh and had the opportunity to ask questions and assume patient care.
--- NOTE | 2021-09-25 18:31 | NUR ---
Problems reprioritized. Patient report given, questions answered & plan of care reviewed with JAMI Bruno.
--- NOTE | 2021-09-25 20:15 | NUR ---
tried giving pt his meds with apple sauce, the same way i did last night with the exception of yogurt. pt refused to even open mouth. i then opted to show pt the spoon of apple sauce without the med and after some coercion he took it. he refused further spoon fulls. about 2114 i opted again with the apple sauce and a colace capsule and he refused. after taking the capsule off the spoon he ended up being spoon fed the whole apple sauce container
[2021-09-25] MEDS: risperiDONE 0.5mg tablet PO SCH (21:00)
[2021-09-25] MEDS: latanoprost 0.005% 2.5ml ophthalmic drops LEFTEYE SCH (21:00)
[2021-09-26 02:00] VITALS: BP 90/55
[2021-09-26 06:00] VITALS: BP 126/61
--- NOTE | 2021-09-26 06:05 | NUR ---
Problems reprioritized. Patient report given, questions answered & plan of care reviewed with saurabh.
--- NOTE | 2021-09-26 06:35 | NUR ---
Patient in room PCU 3028. I have received report from JAMI Bruno and had the opportunity to ask questions and assume patient care.
[2021-09-26 06:57] LABS: ALANINE AMINOTRANSFERASE 33 U/L (12-78); ALBUMIN 1.9 G/DL (3.4-5.0); ALBUMIN/GLOBULIN RATIO 0.5 (1.1-1.5); ALKALINE PHOSPHATASE 70 IU/L (46-116); ANION GAP 6 (8-16); ASPARTATE AMINO TRANSFERASE 27 U/L (10-37); BILIRUBIN,TOTAL 0.2 MG/DL (0.1-1.0); BLOOD UREA NITROGEN 18 MG/DL (7-18); BUN/CREATININE RATIO 26.1 (5.4-32.0); CALCIUM 8.2 MG/DL (8.5-10.1); CHLORIDE 109 MMOL/L (99-107); CREATININE 0.69 MG/DL (0.60-1.10); GLUCOSE 74 MG/DL (70-104); MAGNESIUM 1.9 MG/DL (1.5-2.4); POTASSIUM 3.7 MMOL/L (3.5-5.1); SODIUM 145 MMOL/L (135-145); TOTAL CARBON DIOXIDE 29.9 MMOL/L (24-32); TOTAL PROTEIN 5.6 G/DL (6.4-8.2); eGFR > 90 ML/MIN
[2021-09-26 07:04] LABS: BASOPHILS % (AUTO) 0.3 % (0-1); EOSINOPHILS # (AUTO) 0.1 X10'3 (0-0.9); EOSINOPHILS % (AUTO) 2.6 % (0-6); HEMATOCRIT 34.7 % (42.0-52.0); HEMOGLOBIN 11.8 g/dl (14.0-17.9); LYMPHOCYTES % (AUTO) 42.5 % (21-51); MEAN CORPUSCULAR HEMOGLOBIN 30.9 PG (27.0-31.0); MEAN CORPUSCULAR HGB CONC 34.1 g/dL (33.0-36.5); MEAN CORPUSCULAR VOLUME 90.4 FL (78-98); MEAN PLATELET VOLUME 9.4 FL (7.4-10.4); MONOCYTES # (AUTO) 0.5 X10'3 (0-0.9); MONOCYTES % (AUTO) 10.2 % (2-12); NEUTROPHILS # (AUTO) 2.1 X10'3 (1.8-7.7); NEUTROPHILS % (AUTO) 44.4 % (42-75); PLATELET COUNT 113 X10'3 (140-440); RED BLOOD COUNT 3.84 X10'6 (4.70-6.10); RED CELL DISTRIBUTION WIDTH 12.9 % (11.5-14.5); WHITE BLOOD COUNT 4.6 X10'3 (4.5-11.0)
[2021-09-26] MEDS: pantoprazole 40mg Tablet.DR PO SCH (07:30)
[2021-09-26] MEDS: K and/or MAG REPLACEMENT MC SCH ×2 (08:00→18:26)
[2021-09-26] MEDS: sennosides 8.6mg tablet PO SCH (08:00)
[2021-09-26] MEDS: docusate sod 100mg capsule PO SCH ×2 (08:00→20:00)
[2021-09-26] MEDS: benztropine 1mg tablet PO SCH (08:00)
[2021-09-26] MEDS: lactobacillus rhamnosus 10,000 MMU CELLS/CAPSULE PO SCH (08:00)
[2021-09-26] MEDS: loratadine 10mg tablet PO SCH (08:00)
[2021-09-26] MEDS: heparin, porcine 5000 units/ml vial SQ SCH ×3 (08:00→21:56)
[2021-09-26] MEDS: fluvoxamine 25 MG tablet PO SCH ×2 (08:00→21:55)
[2021-09-26] MEDS: atorvastatin 20mg tablet PO SCH (08:00)
--- NOTE | 2021-09-26 09:29 | NUR ---
Initial: Pt admitted w/ metabolic encephalopathy, MARGO, and poor PO intake per EMR. Pt currently A&O x 1 per documentation but this is likely pt's baseline per MD note. Currently on Puree diet per GROUND SYSTEMS ENGINEER recs w/ avg intake 52% of meals meeting needs at this time. Pt needs feeder per GROUND SYSTEMS ENGINEER note. LBM 09/24, pt has been documented to be refusing PO meds. No nutrition intervention implemented at this time, will continue to monitor. Recommendations: 1) Continue pureed diet with thin liquids per ST recs 2) Total assistance with meals 3) Routine bowel care 4) Scaled weight this admit; subsequent weekly scaled weights Addendum: 09/26/21 at [address] Amended: Links added.
--- NOTE | 2021-09-26 09:33 | NUR ---
T/C to conservator Pretty to notify of pt fall yesterday, 09/25. Also updated her of pt status and discharge planning.
[2021-09-26 11:00] VITALS: BP 111/80
--- NOTE | 2021-09-26 11:00 | NUR ---
pt refusing temperature to be taken at 1100 VS Addendum: 09/26/21 at 1800 by Gay Olivas RN Amended: Links added.
[2021-09-26 15:00] VITALS: BP 112/69
--- NOTE | 2021-09-26 15:00 | NUR ---
Pt refusing temperature to be taken at 1500 VS Addendum: 09/26/21 at 1800 by Gay Olivas RN Amended: Links added.
--- NOTE | 2021-09-26 18:25 | NUR ---
Problems reprioritized. Patient report given, questions answered & plan of care reviewed with ABHILASH Maynard.
[2021-09-26 19:16] VITALS: BP 110/75
[2021-09-26] MEDS: risperiDONE 0.5mg tablet PO SCH (21:55)
[2021-09-26] MEDS: latanoprost 0.005% 2.5ml ophthalmic drops LEFTEYE SCH (21:56)
[2021-09-26] MEDS: temazepam 15mg capsule PO PRN (21:56)
[2021-09-26 23:12] VITALS: BP 115/69
[2021-09-27] VITALS (7 sets, daily range): BP systolic 84–99; BP diastolic 51–63
[2021-09-27 06:37] LABS: MAGNESIUM 1.9 MG/DL (1.5-2.4); POTASSIUM 3.7 MMOL/L (3.5-5.1)
[2021-09-27] MEDS: K and/or MAG REPLACEMENT MC SCH ×2 (08:00→20:00)
[2021-09-27] MEDS: lactobacillus rhamnosus 10,000 MMU CELLS/CAPSULE PO SCH (09:46)
[2021-09-27] MEDS: benztropine 1mg tablet PO SCH (09:46)
[2021-09-27] MEDS: loratadine 10mg tablet PO SCH (09:47)
[2021-09-27] MEDS: atorvastatin 20mg tablet PO SCH (09:47)
[2021-09-27] MEDS: fluvoxamine 25 MG tablet PO SCH ×2 (09:47→20:19)
[2021-09-27] MEDS: docusate sod 100mg capsule PO SCH ×2 (09:47→20:19)
[2021-09-27] MEDS: pantoprazole 40mg Tablet.DR PO SCH (09:47)
[2021-09-27] MEDS: heparin, porcine 5000 units/ml vial SQ SCH ×2 (09:48→20:20)
[2021-09-27] MEDS: latanoprost 0.005% 2.5ml ophthalmic drops LEFTEYE SCH (20:18)
[2021-09-27] MEDS: temazepam 15mg capsule PO PRN (20:18)
[2021-09-27] MEDS: risperiDONE 0.5mg tablet PO SCH (20:19)
[2021-09-28] VITALS (7 sets, daily range): BP systolic 83–111; BP diastolic 43–63
[2021-09-28] MEDS: K and/or MAG REPLACEMENT MC SCH ×2 (08:00→20:00)
[2021-09-28] MEDS: benztropine 1mg tablet PO SCH (08:01)
[2021-09-28] MEDS: docusate sod 100mg capsule PO SCH ×2 (08:02→20:58)
[2021-09-28] MEDS: lactobacillus rhamnosus 10,000 MMU CELLS/CAPSULE PO SCH (08:02)
[2021-09-28] MEDS: pantoprazole 40mg Tablet.DR PO SCH (08:02)
[2021-09-28] MEDS: sennosides 8.6mg tablet PO SCH (08:02)
[2021-09-28] MEDS: loratadine 10mg tablet PO SCH (08:02)
[2021-09-28] MEDS: fluvoxamine 25 MG tablet PO SCH ×2 (08:02→20:58)
[2021-09-28] MEDS: atorvastatin 20mg tablet PO SCH (08:02)
[2021-09-28] MEDS: heparin, porcine 5000 units/ml vial SQ SCH ×2 (08:03→20:59)
[2021-09-28] MEDS: risperiDONE 0.5mg tablet PO SCH (20:58)
[2021-09-28] MEDS: temazepam 15mg capsule PO PRN (20:58)
[2021-09-28] MEDS: latanoprost 0.005% 2.5ml ophthalmic drops LEFTEYE SCH (20:58)
[2021-09-29 02:00] VITALS: BP 99/50
[2021-09-29 06:00] VITALS: BP 108/60
[2021-09-29] MEDS: heparin, porcine 5000 units/ml vial SQ SCH ×2 (08:40→20:50)
[2021-09-29] MEDS: benztropine 1mg tablet PO SCH (08:40)
[2021-09-29] MEDS: pantoprazole 40mg Tablet.DR PO SCH (08:40)
[2021-09-29] MEDS: loratadine 10mg tablet PO SCH (08:40)
[2021-09-29] MEDS: atorvastatin 20mg tablet PO SCH (08:40)
[2021-09-29] MEDS: fluvoxamine 25 MG tablet PO SCH ×2 (08:40→20:50)
[2021-09-29] MEDS: lactobacillus rhamnosus 10,000 MMU CELLS/CAPSULE PO SCH (08:40)
[2021-09-29] MEDS: docusate sod 100mg capsule PO SCH ×2 (08:40→20:49)
[2021-09-29] MEDS: K and/or MAG REPLACEMENT MC SCH ×2 (10:17→20:00)
[2021-09-29 11:00] VITALS: BP 95/56
[2021-09-29 15:00] VITALS: BP 98/54
[2021-09-29 18:00] VITALS: BP 95/51
--- NOTE | 2021-09-29 18:32 | NUR ---
Problems reprioritized. Patient report given, questions answered & plan of care reviewed with ABHILASH Maynard.
[2021-09-29] MEDS: latanoprost 0.005% 2.5ml ophthalmic drops LEFTEYE SCH (20:48)
[2021-09-29] MEDS: risperiDONE 0.5mg tablet PO SCH (20:49)
[2021-09-29] MEDS: temazepam 15mg capsule PO PRN (20:49)
[2021-09-29 22:00] VITALS: BP 110/58
[2021-09-30 02:00] VITALS: BP 94/58
--- NOTE | 2021-09-30 06:44 | NUR ---
Patient in room PCU 3028. I have received report from ABHILASH Maynard and had the opportunity to ask questions and assume patient care.
[2021-09-30 07:09] VITALS: BP 94/60
[2021-09-30] MEDS: heparin, porcine 5000 units/ml vial SQ SCH (08:00)
[2021-09-30] MEDS: benztropine 1mg tablet PO SCH (09:47)
[2021-09-30] MEDS: sennosides 8.6mg tablet PO SCH (09:49)
[2021-09-30] MEDS: pantoprazole 40mg Tablet.DR PO SCH (09:50)
[2021-09-30] MEDS: loratadine 10mg tablet PO SCH (09:50)
[2021-09-30] MEDS: docusate sod 100mg capsule PO SCH (09:52)
[2021-09-30] MEDS: atorvastatin 20mg tablet PO SCH (09:52)
[2021-09-30] MEDS: fluvoxamine 25 MG tablet PO SCH (09:52)
[2021-09-30] MEDS: lactobacillus rhamnosus 10,000 MMU CELLS/CAPSULE PO SCH (09:52)
--- NOTE | 2021-09-30 10:06 | NUR ---
Reassessment: Pt continues on pureed diet with thin liquids per ST recs and eating well, documented with mostly 75-100% PO intake since dinner 09/25 meeting estimated nutrient needs. LBM 09/26, documented as constipated. Pt receiving routine Colace and Senna and received first dose of PRN MoM 09/29. D/w dietary to send prune juice with next meal to assist with bowel regularity. Will continue to follow and monitor need for further nutrition intervention. Recommendations: 1) Continue pureed diet with thin liquids per ST recs 2) Total assistance with meals 3) Routine bowel care; utilize PRN bowel care 4) Scaled weight this admit; subsequent weekly scaled weights Addendum: 09/30/21 at [address] Amended: Links added.
[2021-09-30] MEDS ORDERED: ATOR20TA66 PO (10:25)
[2021-09-30 11:00] VITALS: BP 97/53
--- NOTE | 2021-09-30 14:50 | NUR ---
Pt discharge to home, with all belongings, in private vehicle accompanied by staff member of longterm. T/C to on-call ABHILASH Marley to review discharge instructions; DC paperwork faxed to [phone] per Ayaka's request. Pt instructed to follow up with PCP in 1-2 weeks. Wheelchair delivered by [facility] prior to discharge. IV DC'd, cannula intact. Pt escorted to front lobby via wheelchair by RN.
== END 2021-09-30 14:45 | disposition home health service (06) | DRG 422 ==
LOC: ER 12:08 → ED HOLD 22:32 → PCU 3S 09-22 16:09
PROVIDERS: ADMIT Family Medicine; ATTEND Family Medicine
DX: E86.0 Dehydration (principal); N17.0 Acute kidney failure with tubular necrosis; G93.40 Encephalopathy, unspecified; E43 Unspecified severe protein-calorie malnutrition; K80.10 Calculus of gallbladder with chronic cholecystitis without obstruction; I16.1 Hypertensive emergency; E87.0 Hyperosmolality and hypernatremia; N39.0 Urinary tract infection, site not specified; R13.10 Dysphagia, unspecified; E03.9 Hypothyroidism, unspecified; K59.09 Other constipation; R62.7 Adult failure to thrive; R32 Unspecified urinary incontinence; F79 Unspecified intellectual disabilities; E78.5 Hyperlipidemia, unspecified; F20.9 Schizophrenia, unspecified; I10 Essential (primary) hypertension; Z68.1 Body mass index [BMI] 19.9 or less, adult; Z88.0 Allergy status to penicillin; Z79.899 Other long term (current) drug therapy
CPT/HCPCS: 36415; 70450; 71045; 74176; 80053; 80061; 81003; 82550; 83036; 83605; 83690; 83735; 83880; 84100; 84132; 84145; 84443; 84484; 85025; 85610; 85730; 87040; 87081; 92508; 92616; 97116; 97161; 97530; 97535; 99285; A4314; A4349; A4649; A6402; C1758; C9113; G0378; J1644; J3360; J3480; J3490; J7030; J7040; J7070

== ENCOUNTER 2023-02-12 10:07 | Emergency (ER) | payer MEDICAID ==
[~2023-02-12] VITALS: Ht 157.5 cm; Wt 46.2 kg
[~2023-02-12 10:07] MED LIST changes: +ACET-1015 PO; +ALBU8HFA IH; +ATOR20TA66 PO; -BENZ0.5T36 PO; +BENZ0.5T44 PO; +FLUV100C2 PO; -FLUV100T21 PO; +FLUV50TA24 PO; +LATA2.5D14 LEFTEYE; +LORA10TA7 PO; -POLY17PO10 PO; -RISP1TAB13 PO; +RISP1TAB98 PO; -SULF1TAB45 PO
[2023-02-12 10:16] VITALS: BP 119/66; PULSE 90; RESP 18; TEMP 98; O2SAT 98
[2023-02-12] MEDS ORDERED: bacitracin 15gm ointment TP ONE (12:05)
[2023-02-12] MEDS ORDERED: LIDOCAINE 1%/EPI 1:100,000 inj. 10 ML multi-dose vial IJ ONE (12:05)
[2023-02-12] MEDS ORDERED: LidoCAINE 2% Topical Jelly 11mL syringe TOP ONE (12:40)
[2023-02-12] MEDS ORDERED: LIDOcaine/epinephrine/tetracaine TOPICAL sol 3 ML syringe TOP ONE (12:45)
[2023-02-12] MEDS ORDERED: CEPH500C2 PO (13:45)
[2023-02-12] MEDS ORDERED: BACI1PAC7 TP (13:45)
== END 2023-02-12 14:22 | disposition home or self-care (01) ==
LOC: ER 10:08
DX: S01.81XA Laceration without foreign body of other part of head, initial encounter (principal); Z88.0 Allergy status to penicillin; Z79.899 Other long term (current) drug therapy; Z79.2 Long term (current) use of antibiotics; W01.0XXA Fall on same level from slipping, tripping and stumbling without subsequent striking against object, initial encounter; Y93.89 Activity, other specified; Y92.89 Other specified places as the place of occurrence of the external cause; Y99.8 Other external cause status
CPT/HCPCS: 12013; 99283

== ENCOUNTER → 2023-03-18 | Emergency (ER) | payer MEDICAID ==
[~2023-03-18] VITALS: Ht 152.4 cm; Wt 44.1 kg
[~2023-03-18] MED LIST changes: +LIDOCAINE 1%/EPI 1:100,000 inj. 10 ML multi-dose vial SQ ONE; +LIDOcaine 1% W/epiNEPHrine 1:100,000 20ml vial SQ ONE
[2023-03-18 10:34] VITALS: BP 147/70
[2023-03-18 13:11] VITALS: PULSE 88; RESP 18; TEMP 98.1; O2SAT 94
== END | disposition home or self-care (01) ==
LOC: ER 10:32
DX: S01.01XA Laceration without foreign body of scalp, initial encounter (principal); S01.81XA Laceration without foreign body of other part of head, initial encounter; Z88.0 Allergy status to penicillin; Z79.899 Other long term (current) drug therapy; W19.XXXA Unspecified fall, initial encounter; Z91.81 History of falling; Y93.89 Activity, other specified; Y92.89 Other specified places as the place of occurrence of the external cause; Y99.8 Other external cause status
CPT/HCPCS: 12011; 99284; A6449

== ENCOUNTER 2023-04-10 19:35 | Emergency (ER) | payer MEDICAID ==
[~2023-04-10] VITALS: Ht 152.4 cm; Wt 44.1 kg
[~2023-04-10 19:35] MED LIST changes: -LIDOCAINE 1%/EPI 1:100,000 inj. 10 ML multi-dose vial SQ ONE; -LIDOcaine 1% W/epiNEPHrine 1:100,000 20ml vial SQ ONE
[2023-04-11 02:44] VITALS: BP 122/74; PULSE 82; RESP 16; TEMP 97.6; O2SAT 100
== END 2023-04-11 02:47 | disposition home or self-care (01) ==
LOC: ER 19:36
DX: S01.81XA Laceration without foreign body of other part of head, initial encounter (principal); G80.9 Cerebral palsy, unspecified; Z79.899 Other long term (current) drug therapy; Z88.0 Allergy status to penicillin; W19.XXXA Unspecified fall, initial encounter; Y93.89 Activity, other specified; Y92.89 Other specified places as the place of occurrence of the external cause; Y99.8 Other external cause status
CPT/HCPCS: 99284

== ENCOUNTER 2023-08-28 14:29 | Inpatient (IN) | payer MEDICAID ==
[~2023-08-28] VITALS: Ht 157.5 cm; Wt 42.0 kg
[~2023-08-28 14:29] MED LIST changes: +RISP-31 PO; -RISP1TAB98 PO
[2023-08-28] MEDS: acetaminophen 650mg rectal suppository RC STA (15:22)
[2023-08-28] MEDS: MIDAZolam 5mg/ml 2ml vial IV ONE (15:23)
[2023-08-28] MEDS: levoFLOXACIN-Levaquin 750MG/D5 150 ML IV ONE (15:29)
[2023-08-28] MEDS: normal saline 1000ML IV soln IV ONE (15:29)
[2023-08-28 15:36] LABS: BILIRUBIN,URINE NEGATIVE (Neg); CLARITY,URINE SLIGHTLY CLOUDY (Clear); COLOR,URINE YELLOW (Yellow); GLUCOSE, URINE NEGATIVE (Neg); KETONES,URINE 15 mg/dl (Neg); LEUKOCYTE ESTERASE ,URINE SMALL (Neg); NITRITES, URINE NEGATIVE (Neg); OCCULT BLOOD,URINE MODERATE (Neg); PROTEIN,URINE NEGATIVE (Neg); UROBILINOGEN,URINE 0.2 E.U/dL (0.2-1.0)
[2023-08-28 15:42] LABS: ALBUMIN 3.2 G/DL (3.4-5.0); ANION GAP 8 (8-16); BLOOD UREA NITROGEN 15 MG/DL (7-18); CHLORIDE 101 MMOL/L (99-107); CREATININE 0.79 MG/DL (0.60-1.10); GLUCOSE 109 MG/DL (70-104); MAGNESIUM 1.7 MG/DL (1.5-2.4); POTASSIUM 3.8 MMOL/L (3.5-5.1); SODIUM 137 MMOL/L (135-145); TOTAL CARBON DIOXIDE 27.8 MMOL/L (24-32); eCRCL 56 ML/MIN; eGFR > 90 ML/MIN
[2023-08-28 16:06] LABS: BASOPHILS # (AUTO) 0.1 X10'3 (0-0.2); BASOPHILS % (AUTO) 0.9 % (0-1); EOSINOPHILS % (AUTO) 0 % (0-6); HEMATOCRIT 38.4 % (42.0-52.0); HEMOGLOBIN 12.9 g/dl (14.0-17.9); LYMPHOCYTES # (AUTO) 0.5 X10'3 (1.1-4.8); MEAN CORPUSCULAR HEMOGLOBIN 30.3 PG (27.0-31.0); MEAN CORPUSCULAR HGB CONC 33.7 g/dL (33.0-36.5); MEAN CORPUSCULAR VOLUME 90.1 FL (78-98); MEAN PLATELET VOLUME 6.7 FL (7.4-10.4); MONOCYTES # (AUTO) 0.9 X10'3 (0-0.9); MONOCYTES % (AUTO) 7.6 % (2-12); NEUTROPHILS # (AUTO) 9.9 X10'3 (1.8-7.7); NEUTROPHILS % (AUTO) 87.5 % (42-75); PLATELET COUNT 142 X10'3 (140-440); RED BLOOD COUNT 4.26 X10'6 (4.70-6.10); RED CELL DISTRIBUTION WIDTH 13.6 % (11.5-14.5); WHITE BLOOD COUNT 11.3 X10'3 (4.5-11.0)
[2023-08-28 16:08] LABS: UA COLLECTION TYPE FOLEY CATH
[2023-08-28] MEDS ORDERED: CARB15DR91 LEFT EAR (16:25)
[2023-08-28] MEDS ORDERED: MAGN400O6 PO (16:25)
[2023-08-28] MEDS ORDERED: BISA10SU96 RC (16:25)
[2023-08-28] MEDS ORDERED: CARB15DR91 RIGHT EAR (16:25)
[2023-08-28 16:40] LABS: BACTERIA,URINE 1+ /HPF (Neg); MUCUS STRANDS NONE SEEN /LPF (Neg); RBC,URINE 0-2 /HPF (0-2); SQUAMOUS EPITHELIAL CELL,UR NONE SEEN /LPF (FEW)
[2023-08-28 16:42] LABS: WBC CLUMPS,URINE FEW /HPF (NEGATIVE)
[2023-08-28] MEDS ORDERED: ondansetron/PF 4mg/2ml inj IV PRN (17:55)
[2023-08-28] MEDS ORDERED: magnesium hydroxide 30ml (MOM) UD suspension PO PRN (17:55)
[2023-08-28] MEDS ORDERED: mag hydrox/Alum hydrox/simeth 30ml oral suspension PO PRN (17:55)
[2023-08-28] MEDS: acetaminophen 650mg rectal suppository RC ONE (18:49)
[2023-08-28] MEDS: acetaminophen 1,000mg/100ml IV 100 ML IV SCH (18:57)
[2023-08-28] MEDS: normal saline 1000ml 1,000 ML IV SCH (18:57)
[2023-08-28 19:00] LABS: PLATELET ESTIMATE NORMAL; TOTAL CELLS COUNTED 100
[2023-08-28] MEDS: docusate sod 100mg capsule PO SCH (20:00)
[2023-08-28] MEDS: latanoprost 0.005% 2.5ml ophthalmic drops LEFTEYE SCH (21:00)
[2023-08-28] MEDS: risperiDONE 0.5mg tablet PO SCH (21:00)
[2023-08-28] MEDS: fluvoxamine 25 MG tablet PO SCH (21:00)
[2023-08-28 22:00] VITALS: BP 141/80; PULSE 120; RESP 23; TEMP 102.7; O2SAT 99
[2023-08-28] MEDS ORDERED: ROBDML PO (23:03)
[2023-08-28] MEDS ORDERED: LACT1CAP65 PO (23:03)
[2023-08-28] MEDS ORDERED: POLY17PO10 PO (23:03)
[2023-08-28] MEDS: enoxaparin 40mg/0.4ml syringe SQ SCH (23:40)
[2023-08-28 23:45] VITALS: TEMP 104.5
[2023-08-29] VITALS (11 sets, daily range): BP systolic 97–130; BP diastolic 57–66; PULSE 85–114; RESP 12–20; TEMP 97.8–103.7; O2SAT 93–100
[2023-08-29] MEDS: normal saline 500ml IV soln 500 ML IV ONE (00:24)
[2023-08-29 06:03] LABS: BASOPHILS % (AUTO) 0.1 % (0-1); EOSINOPHILS % (AUTO) 0 % (0-6); HEMATOCRIT 35.7 % (42.0-52.0); LYMPHOCYTES # (AUTO) 0.9 X10'3 (1.1-4.8); LYMPHOCYTES % (AUTO) 6.7 % (21-51); MEAN CORPUSCULAR HGB CONC 33.7 g/dL (33.0-36.5); MEAN CORPUSCULAR VOLUME 91.9 FL (78-98); MEAN PLATELET VOLUME 6.7 FL (7.4-10.4); MONOCYTES # (AUTO) 1.1 X10'3 (0-0.9); MONOCYTES % (AUTO) 7.6 % (2-12); NEUTROPHILS % (AUTO) 85.6 % (42-75); PLATELET COUNT 127 X10'3 (140-440); RED BLOOD COUNT 3.88 X10'6 (4.70-6.10); RED CELL DISTRIBUTION WIDTH 13.3 % (11.5-14.5)
[2023-08-29 06:16] LABS: ALBUMIN 2.6 G/DL (3.4-5.0); ANION GAP 9 (8-16); BLOOD UREA NITROGEN 14 MG/DL (7-18); BUN/CREATININE RATIO 16.9 (10.0-20.0); CALCIUM 7.9 MG/DL (8.5-10.1); CHLORIDE 105 MMOL/L (99-107); CREATININE 0.83 MG/DL (0.60-1.10); GLUCOSE 82 MG/DL (70-104); POTASSIUM 3.6 MMOL/L (3.5-5.1); SODIUM 137 MMOL/L (135-145); TOTAL CARBON DIOXIDE 22.9 MMOL/L (24-32); eCRCL 53 ML/MIN; eGFR > 90 ML/MIN
[2023-08-29] MEDS: benztropine 1mg tablet PO SCH (08:00)
[2023-08-29] MEDS: atorvastatin 20mg tablet PO SCH (08:00)
[2023-08-29] MEDS: loratadine 10mg tablet PO SCH (08:00)
[2023-08-29] MEDS: fluvoxamine 25 MG tablet PO SCH (08:00)
[2023-08-29] MEDS: CefTRIAXone/D5W-Rocephin 1gm 50 ML IV SCH (11:11)
[2023-08-29] MEDS ORDERED: iohexol 300mg/ml 100ml inj. ONE (15:53)
[2023-08-29] MEDS: magnesium 2GM in 50ml NS 50 ML IV ONE (18:43)
[2023-08-30] VITALS (9 sets, daily range): BP systolic 94–144; BP diastolic 55–96; PULSE 83–120; RESP 12–22; TEMP 98–101.6; O2SAT 84–94
[2023-08-30 05:58] LABS: BASOPHILS % (AUTO) 0.1 % (0-1); EOSINOPHILS % (AUTO) 0 % (0-6); HEMATOCRIT 35.3 % (42.0-52.0); HEMOGLOBIN 11.9 g/dl (14.0-17.9); LYMPHOCYTES # (AUTO) 1.1 X10'3 (1.1-4.8); LYMPHOCYTES % (AUTO) 7.2 % (21-51); MEAN CORPUSCULAR HEMOGLOBIN 30.7 PG (27.0-31.0); MEAN CORPUSCULAR HGB CONC 33.7 g/dL (33.0-36.5); MEAN CORPUSCULAR VOLUME 91.2 FL (78-98); MONOCYTES # (AUTO) 1.6 X10'3 (0-0.9); MONOCYTES % (AUTO) 9.9 % (2-12); NEUTROPHILS # (AUTO) 13.3 X10'3 (1.8-7.7); NEUTROPHILS % (AUTO) 82.8 % (42-75); PLATELET COUNT 125 X10'3 (140-440); RED BLOOD COUNT 3.87 X10'6 (4.70-6.10); RED CELL DISTRIBUTION WIDTH 13.7 % (11.5-14.5)
[2023-08-30 06:06] LABS: ALBUMIN 2.2 G/DL (3.4-5.0); ANION GAP 10 (8-16); BLOOD UREA NITROGEN 19 MG/DL (7-18); BUN/CREATININE RATIO 24.1 (10.0-20.0); CHLORIDE 109 MMOL/L (99-107); CREATININE 0.79 MG/DL (0.60-1.10); GLUCOSE 54 MG/DL (70-104); POTASSIUM 3.5 MMOL/L (3.5-5.1); SODIUM 140 MMOL/L (135-145); TOTAL CARBON DIOXIDE 20.9 MMOL/L (24-32); eCRCL 56 ML/MIN; eGFR > 90 ML/MIN
[2023-08-30] MEDS: dextrose 50%-water 50ml dispensing syringe IV ONE (06:34)
[2023-08-30] MEDS: acetaminophen 325mg tablet PO PRN (18:49)
[2023-08-31] VITALS (9 sets, daily range): BP systolic 121–135; BP diastolic 69–82; PULSE 80–110; RESP 16–38; TEMP 97.9–99.2; O2SAT 88–96
[2023-08-31 08:35] LABS: MEAN PLATELET VOLUME 7.6 FL (7.4-10.4)
[2023-08-31 08:36] LABS: ALBUMIN 2.1 G/DL (3.4-5.0); ANION GAP 10 (8-16); BLOOD UREA NITROGEN 16 MG/DL (7-18); BUN/CREATININE RATIO 23.5 (10.0-20.0); CHLORIDE 109 MMOL/L (99-107); CREATININE 0.68 MG/DL (0.60-1.10); GLUCOSE 80 MG/DL (70-104); POTASSIUM 3.1 MMOL/L (3.5-5.1); SODIUM 142 MMOL/L (135-145); TOTAL CARBON DIOXIDE 22.6 MMOL/L (24-32); eCRCL 65 ML/MIN; eGFR > 90 ML/MIN
[2023-08-31 08:37] LABS: BASOPHILS % (AUTO) 0.1 % (0-1); EOSINOPHILS % (AUTO) 0.1 % (0-6); HEMATOCRIT 33.4 % (42.0-52.0); HEMOGLOBIN 11.6 g/dl (14.0-17.9); LYMPHOCYTES # (AUTO) 0.9 X10'3 (1.1-4.8); LYMPHOCYTES % (AUTO) 8.1 % (21-51); MEAN CORPUSCULAR HEMOGLOBIN 31.1 PG (27.0-31.0); MEAN CORPUSCULAR HGB CONC 34.8 g/dL (33.0-36.5); MEAN CORPUSCULAR VOLUME 89.6 FL (78-98); MONOCYTES # (AUTO) 1.2 X10'3 (0-0.9); MONOCYTES % (AUTO) 11.2 % (2-12); NEUTROPHILS # (AUTO) 8.9 X10'3 (1.8-7.7); NEUTROPHILS % (AUTO) 80.5 % (42-75); PLATELET COUNT 143 X10'3 (140-440); RED BLOOD COUNT 3.73 X10'6 (4.70-6.10); RED CELL DISTRIBUTION WIDTH 13.9 % (11.5-14.5)
[2023-08-31] MEDS: vancomycin/NS 1 GM ADD-VANTAGE 250 ML IV SCH (10:21)
[2023-08-31] MEDS ORDERED: magnesium Cl slow-release 64mg tablet PO PRN (12:15)
[2023-08-31] MEDS ORDERED: magnesium 4gm in 100ml NS 100 ML IV PRN (12:15)
[2023-08-31] MEDS ORDERED: potassium Cl 20 mEq SR tablet PO PRN ×2 (12:15)
[2023-08-31] MEDS ORDERED: magnesium 2GM in 50ml NS 50 ML IV PRN (12:15)
[2023-08-31] MEDS: potassium Cl 40MEQ/1/2NS 520ml 520 ML IV PRN (12:44)
[2023-08-31] MEDS: albuterol 2.5 MG/3 ML nebule NEB PRN (17:42)
[2023-08-31] MEDS: K and/or MAG REPLACEMENT MC SCH (19:30)
[2023-08-31] MEDS: nystatin 15 GM powder TP SCH (21:52)
[2023-09-01] VITALS (9 sets, daily range): BP systolic 131–152; BP diastolic 69–96; PULSE 76–103; RESP 14–28; TEMP 97.3–98.3; O2SAT 89–95
[2023-09-01] MEDS ORDERED: DOXY-243 PO (08:22)
[2023-09-01 09:27] LABS: BASOPHILS % (AUTO) 0.2 % (0-1); EOSINOPHILS % (AUTO) 0.4 % (0-6); HEMATOCRIT 32.9 % (42.0-52.0); HEMOGLOBIN 11.3 g/dl (14.0-17.9); LYMPHOCYTES # (AUTO) 1.3 X10'3 (1.1-4.8); LYMPHOCYTES % (AUTO) 17.5 % (21-51); MEAN CORPUSCULAR HEMOGLOBIN 30.7 PG (27.0-31.0); MEAN CORPUSCULAR HGB CONC 34.3 g/dL (33.0-36.5); MEAN CORPUSCULAR VOLUME 89.7 FL (78-98); MEAN PLATELET VOLUME 6.9 FL (7.4-10.4); MONOCYTES # (AUTO) 0.9 X10'3 (0-0.9); MONOCYTES % (AUTO) 13.1 % (2-12); NEUTROPHILS % (AUTO) 68.8 % (42-75); PLATELET COUNT 149 X10'3 (140-440); RED BLOOD COUNT 3.66 X10'6 (4.70-6.10); RED CELL DISTRIBUTION WIDTH 13.9 % (11.5-14.5); WHITE BLOOD COUNT 7.2 X10'3 (4.5-11.0)
[2023-09-01 09:45] LABS: ALBUMIN 1.9 G/DL (3.4-5.0); ANION GAP 6 (8-16); BLOOD UREA NITROGEN 10 MG/DL (7-18); BUN/CREATININE RATIO 16.7 (10.0-20.0); CALCIUM 7.7 MG/DL (8.5-10.1); CHLORIDE 109 MMOL/L (99-107); GLUCOSE 102 MG/DL (70-104); SODIUM 142 MMOL/L (135-145); TOTAL CARBON DIOXIDE 26.9 MMOL/L (24-32); eCRCL 74 ML/MIN; eGFR > 90 ML/MIN
[2023-09-01 09:51] LABS: POTASSIUM 2.8 MMOL/L (3.5-5.1)
[2023-09-01] MEDS ORDERED: VANCOMYCIN LEVEL IV ONE (20:30)
[2023-09-02 08:00] VITALS: RESP 22
[2023-09-02 08:22] LABS: BASOPHILS % (AUTO) 0.3 % (0-1); EOSINOPHILS # (AUTO) 0.2 X10'3 (0-0.9); EOSINOPHILS % (AUTO) 2.8 % (0-6); HEMATOCRIT 37.7 % (42.0-52.0); HEMOGLOBIN 12.7 g/dl (14.0-17.9); LYMPHOCYTES # (AUTO) 1.4 X10'3 (1.1-4.8); LYMPHOCYTES % (AUTO) 24.6 % (21-51); MEAN CORPUSCULAR HEMOGLOBIN 30.3 PG (27.0-31.0); MEAN CORPUSCULAR HGB CONC 33.7 g/dL (33.0-36.5); MEAN CORPUSCULAR VOLUME 89.7 FL (78-98); MEAN PLATELET VOLUME 6.9 FL (7.4-10.4); MONOCYTES # (AUTO) 0.8 X10'3 (0-0.9); MONOCYTES % (AUTO) 13.9 % (2-12); NEUTROPHILS # (AUTO) 3.4 X10'3 (1.8-7.7); NEUTROPHILS % (AUTO) 58.4 % (42-75); PLATELET COUNT 184 X10'3 (140-440); RED CELL DISTRIBUTION WIDTH 13.8 % (11.5-14.5); WHITE BLOOD COUNT 5.8 X10'3 (4.5-11.0)
[2023-09-02 08:33] LABS: ALBUMIN 2.1 G/DL (3.4-5.0); ANION GAP 5 (8-16); BLOOD UREA NITROGEN 8 MG/DL (7-18); BUN/CREATININE RATIO 13.8 (10.0-20.0); CALCIUM 8.2 MG/DL (8.5-10.1); CHLORIDE 107 MMOL/L (99-107); CREATININE 0.58 MG/DL (0.60-1.10); GLUCOSE 77 MG/DL (70-104); POTASSIUM 4.7 MMOL/L (3.5-5.1); SODIUM 142 MMOL/L (135-145); TOTAL CARBON DIOXIDE 30.2 MMOL/L (24-32); eCRCL 76 ML/MIN; eGFR > 90 ML/MIN
[2023-09-02 09:22] VITALS: PULSE 115; RESP 20; O2SAT 94
[2023-09-02 18:00] VITALS: BP 152/92; PULSE 80; RESP 20; TEMP 98.4; O2SAT 92
[2023-09-02 18:58] VITALS: PULSE 105; RESP 20; O2SAT 93
[2023-09-02 20:00] VITALS: RESP 18; O2SAT 92
[2023-09-02] MEDS: VANCOMYCIN LEVEL IV ONE (20:30)
[2023-09-02 22:00] VITALS: BP 137/83; PULSE 69; RESP 16; TEMP 97.8; O2SAT 91
[2023-09-03] VITALS (7 sets, daily range): BP systolic 135–153; BP diastolic 80–89; PULSE 72–102; RESP 18–22; TEMP 97.6–97.9; O2SAT 92–96
[2023-09-03] MEDS: lactose-reduced food (Ensure Enlive) - 237ml bottle PO SCH (17:00)
[2023-09-04 06:41] VITALS: BP 137/72; PULSE 85; RESP 16; TEMP 97.8; O2SAT 96
[2023-09-04 07:48] VITALS: PULSE 76; RESP 22; O2SAT 94
[2023-09-04 08:00] VITALS: RESP 18
[2023-09-04 10:57] VITALS: BP 105/64; PULSE 90; RESP 20; TEMP 98.6; O2SAT 92
== END 2023-09-04 14:02 | disposition home or self-care (01) | DRG 421 ==
LOC: ER 14:30 → UNDOADMIN 17:52 → ED HOLD 17:52 → SUR 3N 22:02
PROVIDERS: ADMIT Internal Medicine; ATTEND Internal Medicine
DX: R62.7 Adult failure to thrive (principal); J96.01 Acute respiratory failure with hypoxia; E43 Unspecified severe protein-calorie malnutrition; N39.0 Urinary tract infection, site not specified; Z20.822 Contact with and (suspected) exposure to COVID-19; F20.9 Schizophrenia, unspecified; F42.9 Obsessive-compulsive disorder, unspecified; G80.9 Cerebral palsy, unspecified; Z68.1 Body mass index [BMI] 19.9 or less, adult
CPT/HCPCS: 36415; 70450; 71045; 74177; 80048; 80202; 81001; 82948; 83605; 83735; 84145; 85007; 85025; 87040; 87077; 87081; 87088; 87186; 87502; 87503; 87811; 92508; 92616; 93005; 94640; 94760; 97116; 97161; 97530; 97535; 99285; A4615; A5200; A6250; A6446; A6590; C1758; G0378; J0131; J0696; J1650; J1956; J2250; J3370; J3475; J3480; J3490; J7030; J7040; Q9967

== ENCOUNTER 2024-04-18 07:52 | Day surgery (SDC) | payer MEDICAID ==
[2024-04-09 10:52] LABS: BASOPHILS % (AUTO) 0.4 % (0-1); EOSINOPHILS # (AUTO) 0.3 X10'3 (0-0.9); EOSINOPHILS % (AUTO) 4.6 % (0-6); HEMATOCRIT 39.6 % (42.0-52.0); HEMOGLOBIN 13.6 g/dl (14.0-17.9); LYMPHOCYTES # (AUTO) 2.1 X10'3 (1.1-4.8); LYMPHOCYTES % (AUTO) 34.6 % (21-51); MEAN CORPUSCULAR HEMOGLOBIN 31.6 PG (27.0-31.0); MEAN CORPUSCULAR HGB CONC 34.3 g/dL (33.0-36.5); MEAN CORPUSCULAR VOLUME 92.1 FL (78-98); MONOCYTES # (AUTO) 0.6 X10'3 (0-0.9); MONOCYTES % (AUTO) 10.4 % (2-12); NEUTROPHILS # (AUTO) 3.1 X10'3 (1.8-7.7); PLATELET COUNT 145 X10'3 (140-440); RED CELL DISTRIBUTION WIDTH 13.5 % (11.5-14.5); WHITE BLOOD COUNT 6.1 X10'3 (4.5-11.0)
[2024-04-09 11:45] LABS: ALANINE AMINOTRANSFERASE 54 U/L (12-78); ALBUMIN 3.1 G/DL (3.4-5.0); ALBUMIN/GLOBULIN RATIO 0.9 (1.1-1.5); ALKALINE PHOSPHATASE 122 IU/L (46-116); ANION GAP 9 (8-16); ASPARTATE AMINO TRANSFERASE 27 U/L (10-37); BILIRUBIN,TOTAL 0.3 MG/DL (0.1-1.0); BLOOD UREA NITROGEN 19 MG/DL (7-18); BUN/CREATININE RATIO 25.3 (10.0-20.0); CALCIUM 8.9 MG/DL (8.5-10.1); CHLORIDE 105 MMOL/L (99-107); CREATININE 0.75 MG/DL (0.60-1.10); GLUCOSE 108 MG/DL (70-104); POTASSIUM 4.3 MMOL/L (3.5-5.1); SODIUM 143 MMOL/L (135-145); TOTAL CARBON DIOXIDE 29.1 MMOL/L (24-32); TOTAL PROTEIN 6.6 G/DL (6.4-8.2); eGFR > 90 ML/MIN
[~2024-04-18] VITALS: Ht 154.9 cm; Wt 41.9 kg
[2024-04-18] VITALS (11 sets, daily range): BP systolic 114–135; BP diastolic 74–92; PULSE 77–96; RESP 10–16; TEMP 98.4; O2SAT 93–99
[2024-04-18] MEDS: clindamycin-Cleocin 900mg/D5W 50 ML IV ONE (05:30)
[~2024-04-18 07:52] MED LIST changes: -ALBU8HFA IH; -ATOR20TA66 PO; +BISA10SU96 RC; +CARB15DR91 LEFT EAR; +CARB15DR91 RIGHT EAR; +LACT1CAP65 PO; -LACTC PO; +MAGN400O6 PO; +POLY17PO10 PO; +ROBDML PO; -SENN-263 PO; +SENN-360 PO; +enalaprilat dihydrate 2.5mg/2ml vial IV PRN; +famotidine 20mg tablet PO ONE; +labetalol 20mg/4ml (5mg/ml) syringe IV PRN; +meperidine/PF 25mg/ml syringe IV PRN; +morphine 2 MG/ML inj. syringe IV PRN; +morphine 4 MG/ML inj SYRINge IV PRN; +ondansetron/PF 4mg/2ml inj IV PRN; +proCHLORperazine 10 MG/2 ml inj IV PRN; +ringers solution, lacted 1,000 ML IV SCH
[2024-04-18] MEDS: ringers solution, lacted 1,000 ML IV SCH (08:52)
[2024-04-18] MEDS: famotidine/PF 10 mg/ml inj IV ONE (09:19)
[2024-04-18] MEDS ORDERED: LIDOcaine 1% 30ml preserv. free vial ONE (10:00)
[2024-04-18] MEDS ORDERED: BUPIVAcaine 2.5mg/ml inj 50ml vial (contains preservative) ONE (10:00)
[2024-04-18] MEDS ORDERED: desflurane 240ml liquid inh. IH ONE (10:12)
[2024-04-18] MEDS ORDERED: fentaNYL/PF 50MCG/1 ML 2ML syringe ONE (10:22)
[2024-04-18] MEDS ORDERED: MIDAZolam 1 MG/ML 5ML VIAL ONE (10:22)
[2024-04-18] MEDS ORDERED: propofol inj 20 ML IV ONE (10:34)
[2024-04-18] MEDS ORDERED: rocuronium 10mg/ml inj IV ONE (10:34)
[2024-04-18] MEDS ORDERED: LIDOcaine 2% (20mg/ml) 5ml vial ONE (10:35)
[2024-04-18] MEDS ORDERED: ondansetron/PF 4mg/2ml inj ONE (10:41)
[2024-04-18] MEDS ORDERED: acetaminophen 1,000mg/100ml IV 100 ML IV ONE (11:27)
[2024-04-18] MEDS: BUPIVAcaine 2.5mg/ml inj 50ml vial (contains preservative) SQ ONE (11:33)
== END 2024-04-18 13:40 | disposition home or self-care (01) ==
LOC: PRE-OP 07:52
PROVIDERS: ATTEND Surgery
DX: K40.90 Unilateral inguinal hernia, without obstruction or gangrene, not specified as recurrent (principal); G80.9 Cerebral palsy, unspecified; F20.9 Schizophrenia, unspecified; F84.0 Autistic disorder; F41.9 Anxiety disorder, unspecified; Z79.899 Other long term (current) drug therapy; Z88.0 Allergy status to penicillin; Z98.890 Other specified postprocedural states
CPT/HCPCS: 36415; 49650; 80053; 82948; 85025; 93005; C1781; J0131; J1100; J2003; J2250; J2310; J2405; J2704; J2710; J3010; J3490; J7030; J7120; S2900; Z7506; Z7508; Z7512; A4215; A4618

== ENCOUNTER 2024-11-04 21:21 | Emergency (ER) | payer MEDICARE, MEDICAID ==
[~2024-11-04 21:21] MED LIST changes: +FLUV50TA10 PO; -FLUV50TA24 PO; -LATA2.5D14 LEFTEYE; +LATA2.5D7 LEFTEYE; -enalaprilat dihydrate 2.5mg/2ml vial IV PRN; -famotidine 20mg tablet PO ONE; -labetalol 20mg/4ml (5mg/ml) syringe IV PRN; -meperidine/PF 25mg/ml syringe IV PRN; -morphine 2 MG/ML inj. syringe IV PRN; -morphine 4 MG/ML inj SYRINge IV PRN; -ondansetron/PF 4mg/2ml inj IV PRN; -proCHLORperazine 10 MG/2 ml inj IV PRN; -ringers solution, lacted 1,000 ML IV SCH
[2024-11-04 21:41] VITALS: TEMP 96.8
--- NOTE | 2024-11-04 23:21 | RADIOLOGY REPORT ---
EXAMINATIONS: 3 views of the left hand 4th digit CLINICAL HISTORY: Finger Pain 4TH DIGIT, BRUISING COMPARISON: None Findings and impression: Comminuted, minimally displaced fracture of the tuft of the 4th distal phalanx. 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
--- NOTE | 2024-11-05 03:02 | Physician Documentation ---
History of Present Illness ~ Chief Complaint: Finger pain Stated Complaint: LT HAND PAIN/RING FINGER Time Seen by MD: 02:58 OK to notify your PCP?: Yes Primary Medical Doctor: [facility] Source: patient, RN/MD, RN notes reviewed, old records Mode of Arrival: POV Exam Limitations: no limitations HPI 64 year old male with history of autism presents to the emegency department for complaints of finger pain that began tonight at 1930. Patient has history of schizoeffective disorder, autism, and has a mental delay and is non verbal. He was accompanied by his caregiver who gave his history. Patient states that he likes to scoot around on the floor and on their home there is plenty of objects to bump his finger on. She states that while putting him to bed she noticed the bruising and swelling to his left fourth finger. Tetanus within 5 years: Yes Medication Reconciliation Allergies: Coded Allergies: Penicillins (Unverified Allergy, Unknown, 11/04/24) PT RECIEVED ROCEPHIN 03/2020 AND TOLERATED Scheduled Ascorbic Acid (Ascorbic Acid), 1 TAB PO BID, (Reported) Benztropine Mesylate (Benztropine Mesylate), 1 TAB PO DAILY, (Reported) Carbamide Peroxide (Debrox), 2 DROP RIGHT EAR Q12H, (Reported) Carbamide Peroxide (Debrox), 2 DROP LEFT EAR Q12H, (Reported) Cranberry Extract (Cranberry), 1 TAB PO BID, (Reported) Fluvoxamine Maleate (Fluvoxamine Maleate), 2 CAP PO QPM, (Reported) Fluvoxamine Maleate (Fluvoxamine Maleate), 1 TAB PO QAM, (Reported) Latanoprost (Latanoprost), 1 DROP LEFTEYE HS, (Reported) Loratadine (Loratadine), 1 TAB PO DAILY, (Reported) Polyethylene Glycol 3350* (Miralax*), PO DAILY, (Reported) Risperidone (Risperidone), 1 TAB PO QPM, (Reported) Sennosides (Senna), 2 TAB PO Q48H, (Reported) Scheduled PRN Acetaminophen (Acetaminophen), 2 TAB PO Q6H PRN PRN for pain or fever, (Reported) Bisacodyl (Gentle Laxative), 1 SUPP RC PRN PRN for CONSTIPATION, (Reported) Guaifenesin/D-Methorphan Hb (Robitussin Dm), 10 ML PO Q6H PRN for cough, (Reported) Magnesium Hydroxide (Milk of Magnesia), 30 ML PO PRN PRN for constipation, (Reported) Miscellaneous Medications Lactobacillus Acidophilus (Probiotic), 1 EACH PO, (Reported) Past Medical History Past Medical History: Hepatitis B, Schizophrenia Past Surgical History: noncontributory, other Other Past Surgical History: Fifth digit on the left hand is amputated. Alcohol Use: None Drug Use: none Lives with: Other Lives In: Assisted Care Occupation: disabled Review of Systems All Other Systems at this time: Reviewed and Negative ROS As stated above in the HPI, otherwise all systems are reviewed and negative. Physical Exam Vital Signs: RN Vital Signs have been reviewed: Yes, Temperature: 96.8, Heart Rate: 59, Respiratory Rate: 16, BP: 108/46, Pulse Oximetry: 98 Pulse Oximetry Reflects: adequate oxygenation Physical Exam General: The patient is well developed, well nourished, nontoxic appearing and is in no acute distress. Skin: [place], warm and dry with no rashes. HEENT: Head was normocephalic and atraumatic. Eyes - pupils equal, round, reactive to light and accommodation. Extraocular movements were intact. Conjunctivae were nonicteric. Ears - bilateral tympanic membranes were normal. The mouth and oropharynx were clear with moist mucous membranes. There were no pharyngeal exudates or erythema. Neck: Supple and nontender. There was no jugular venous distention, lymphadenopathy, thyromegaly or masses. Chest: Clear to auscultation bilaterally without wheezes, rales or rhonchi. No accessory muscle use. No dullness to percussion. Heart: Rate regular and rhythmic. S1, S2. No murmurs. Palpation of the chest wall was normal. No rubs or thrills. Abdomen: Soft, nontender and nondistended. Positive bowel sounds. No guarding or rebound. No hepatosplenomegaly or palpable masses. Extremities: Swelling and ecchymosis noted to fourth left finger. Otherwise, No cyanosis, clubbing or edema. The patient moves all extremities. Pulses were equal and symmetric. Neurologic: Cranial nerves II-XII were intact. Sensation was intact to light touch throughout. Motor strength was 5/5 in all four extremities. Deep tendon reflexes were intact in both upper and lower extremities. Psychologic: The patient was oriented to person, place and time. The patient demonstrated appropriate judgement and insight. Progress Results/Orders Results/Orders Vital Signs 11/04/24 11/05/24 21:41 00:45 Temp 96.8 Pulse 82 59 Resp 15 16 B/P (MAP) 106/45 108/46 (66) Pulse Ox 100 98 EKG/XRAY/CT/US/VASC/MRI Bone/Soft Tissue X-Ray (Ext.) : Additional Comment EXAMINATIONS: 3 views of the left hand 4th digit CLINICAL HISTORY: Finger Pain 4TH DIGIT, BRUISING COMPARISON: None Findings and impression: Comminuted, minimally displaced fracture of the tuft of the 4th distal phalanx. 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 Electronically Signed by:FERNANDO FINLEY MD Date & Time: 11/04/242317 Departure Time of Disposition: 03:13 Disposition: 01 HOME / SELF CARE / HOMELESS Impression: Primary Impression: comminuted tuft fracture Condition: Stable Discharge Instructions: Fracture, Finger Referrals: NO PRIMARY CARE PROVIDER (PCP) Education Educated: Family, Other Educated regarding: diagnosis, treatment, prognosis, need for follow up Signature Scribe Signature: Scribed for Gita Marshall MD by Ayah Maxwell . 11/05/24 03:13 Attestation: The note accurately reflects work and decisions made by me.Giat Marshall MD 11/05/24 03:02 GITA MARSHALL MD Nov 05, 2024 03:02 AYAH GOLD Nov 05, 2024 03:13
[2024-11-05 03:52] VITALS: BP 101/63; PULSE 85; RESP 13; O2SAT 99
== END 2024-11-05 03:55 | disposition home or self-care (01) ==
LOC: ER 21:21
DX: S72.351A Displaced comminuted fracture of shaft of right femur, initial encounter for closed fracture (principal); F20.9 Schizophrenia, unspecified; F84.0 Autistic disorder; Z88.0 Allergy status to penicillin; W22.8XXA Striking against or struck by other objects, initial encounter; Y93.89 Activity, other specified; Y92.89 Other specified places as the place of occurrence of the external cause; Y99.8 Other external cause status
CPT/HCPCS: 73140; 99284